=== PATIENT | female | born 1965 | race Caucasian/White ===

== ENCOUNTER 2021-03-25 18:23 | Emergency (ER) | payer OTHER ==
[~2021-03-25 18:23] MED LIST: ASPIRIN CHEWABL81 MG PO; COUMADIN7.5 MG PO; EFFEXOR XR75 MG PO; TOPAMAX100 MG PO; ZANAFLEX4 MG PO
== END 2021-03-25 21:15 | disposition home or self-care (01) ==
LOC: FER 18:23
DX: M54.41 Lumbago with sciatica, right side (principal); R51.9 Headache, unspecified; M54.2 Cervicalgia; Z88.8 Allergy status to other drugs, medicaments and biological substances; X50.1XXA Overexertion from prolonged static or awkward postures, initial encounter; W19.XXXA Unspecified fall, initial encounter; Y93.89 Activity, other specified; Y92.89 Other specified places as the place of occurrence of the external cause; Y99.0 Civilian activity done for income or pay
CPT/HCPCS: 70450; 72125; 72131; J1100